=== PATIENT | female | born 1990 | race Hispanic/Latino ===

== ENCOUNTER 2022-02-16 09:26 | Emergency (ER) | payer OTHER ==
[~2022-02-16] VITALS: Ht 154.9 cm; Wt 64.0 kg
[2022-02-16] VITALS (9 sets, daily range): BP systolic 109–137; BP diastolic 71–107
[2022-02-16] MEDS ORDERED: CLARITIN10 M2 PO (10:34)
[2022-02-16] MEDS ORDERED: AMOXICILLIN500 MG PO (10:34)
== END 2022-02-16 11:30 | disposition home or self-care (01) | DRG 153 ==
LOC: ED 09:26
DX: J02.9 Acute pharyngitis, unspecified (principal); J06.9 Acute upper respiratory infection, unspecified